=== PATIENT | female | born 1990 | race Caucasian/White ===

== ENCOUNTER 2023-10-25 08:02 | Outpatient (CLI) | payer OTHER ==
[2023-10-25 10:03] LABS: Hematocrit 40.1 % (34.9-44.5); Mean Corpuscular HGB CONC 32.4 g/dL (32.0-36.0); Mean Corpuscular Hemoglobin 28.6 pg (27.0-33.0); Mean Corpuscular Volume 88.1 fl (81.6-98.3); Mean Platelet Volume 9.9 fl (7.4-10.4); Platelet Count 284 10x3/uL (150-450); RBC Distribution Width 12.6 % (11.5-14.5); Red Blood Cell (RBC) Count 4.55 10x6/uL (3.90-5.03); White Blood Cell (WBC) Count 5.5 10x3/uL (3.5-10.5)
== END 2023-10-25 08:03 | disposition home or self-care (01) ==
LOC: CSHLAB 08:02
PROVIDERS: ATTEND Obstetrics & Gynecology
DX: Z01.812 Encounter for preprocedural laboratory examination (principal); O00.91 Unspecified ectopic pregnancy with intrauterine pregnancy
CPT/HCPCS: 84702; 85027; 86850; 86900; 86901

== ENCOUNTER 2023-10-29 10:31 | Day surgery (SDC) | payer OTHER ==
[2023-10-25 08:21] VITALS: BMI 31.6
[2023-10-29] MEDS ORDERED: Famotidine/PF 20 mg/2ml Vial ONE (10:53)
[2023-10-29] MEDS ORDERED: Gabapentin 300 MG CAP ONE (10:53)
[2023-10-29] MEDS ORDERED: CeleCOXIB 100 MG CAP ONE (10:53)
[2023-10-29] MEDS ORDERED: Lidocaine 2% PF 5 ML VIAL ONE (11:29)
[2023-10-29] MEDS ORDERED: Dexamethasone 4 mg/ml Vial ONE (11:29)
[2023-10-29] MEDS ORDERED: Rocuronium Bromide 10 MG/ML (10ML VIAL) ONE (11:29)
[2023-10-29] MEDS ORDERED: Ondansetron PF 4 MG/2 ML Vial ONE (11:29)
[2023-10-29] MEDS ORDERED: Fentanyl 250 MCG/5 ML VIAL ONE (11:30)
[2023-10-29] MEDS ORDERED: PROPOFOL 40 ML ONE (11:30)
[2023-10-29] MEDS ORDERED: Scopolamine 1 mg/72 hour Patch ONE (12:00)
[2023-10-29] MEDS ORDERED: Midazolam HCl 2 mg/2 ml Vial ONE (12:16)
[2023-10-29] MEDS ORDERED: Bupivacaine PF 0.5% 30 ML VIAL ONE (12:21)
[2023-10-29] MEDS ORDERED: SUGAMMADEX SODIUM 200 MG/2 ML VIAL ONE (12:34)
[2023-10-29] MEDS ORDERED: CEFAZOLIN 2 GM VIAL ONE (12:37)
[2023-10-29] MEDS ORDERED: EPINEPHrine 1 MG/ML AMP ONE (13:05)
[2023-10-29] MEDS ORDERED: fentaNYL 50 mcg/mL 1 mL Vial ONE (13:52)
[2023-10-29] MEDS ORDERED: Meperidine HCl/PF 25 MG/ML VIAL ONE (14:53)
[2023-10-29] MEDS ORDERED: HYDROcodone/Acetaminophen 5/325 mg Tablet ONE (15:54)
== END 2023-10-29 18:30 | disposition home or self-care (01) ==
LOC: CSHSDC 10:31
PROVIDERS: ATTEND Obstetrics & Gynecology
PROC: 0UT04ZZ Resection of Right Ovary, Percutaneous Endoscopic Approach (ICD-10-PCS; principal; 2023-10-29)
PROC: 0UT74ZZ Resection of Bilateral Fallopian Tubes, Percutaneous Endoscopic Approach (ICD-10-PCS; principal; 2023-10-29)
PROC: 0UT94ZZ Resection of Uterus, Percutaneous Endoscopic Approach (ICD-10-PCS; principal; 2023-10-29)
DX: O00.91 Unspecified ectopic pregnancy with intrauterine pregnancy (principal); O02.1 Missed abortion; K66.0 Peritoneal adhesions (postprocedural) (postinfection); N83.201 Unspecified ovarian cyst, right side; N83.11 Corpus luteum cyst of right ovary; O73.0 Retained placenta without hemorrhage; N85.8 Other specified noninflammatory disorders of uterus; Z98.890 Other specified postprocedural states; Z79.899 Other long term (current) drug therapy
CPT/HCPCS: 88305; 88307; C9250; J0171; J1100; J2001; J2175; J2250; J2405; J2704; J3010; S0020; S0028